=== PATIENT | male | born 1955 | race Caucasian/White ===

== ENCOUNTER 2016-10-03 10:19 | Emergency (ER) | payer MEDICAID ==
[~2016-10-03] VITALS: Ht 172.7 cm; Wt 63.5 kg
[2016-10-03 12:34] LABS: CALCIUM 8.7 mg/dL (8.5-10.1); CARBON DIOXIDE 27.8 mmol/L (21-32); CHLORIDE SERUM 104 mmol/L (98-107); CREATININE SERUM 0.9 mg/dL (0.7-1.3); GFR1 > 60 mL/min; GLUCOSE SERUM 95 mg/dL (74-106); POTASSIUM SERUM 4.1 mmol/L (3.5-5.1); SODIUM SERUM 137 mmol/L (136-145)
[2016-10-03 14:16] VITALS: BP 145/89
== END 2016-10-03 14:16 | disposition home or self-care (01) ==
LOC: ED 10:19
PROVIDERS: Emergency Medicine
DX: L03.115 Cellulitis of right lower limb (principal)
CPT/HCPCS: J0690; J2405; J3010; J3490

== ENCOUNTER 2016-10-06 09:06 | Inpatient (IN) | payer SELFPAY ==
[~2016-10-06] VITALS: Ht 172.7 cm; Wt 62.1 kg
--- NOTE | 2016-10-06 10:44 | NUR ---
TO TOOM T2A VIA WC, AWAITING EVAL.
--- NOTE | 2016-10-06 11:01 | NUR ---
MSE COMPLETED BY DR VENCES.
--- NOTE | 2016-10-06 11:08 | NUR ---
MORTGAGE BROKER AT BEDSIDE.
--- NOTE | 2016-10-06 11:24 | NUR ---
X-RAY AT BEDSIDE.
[2016-10-06 11:29] LABS: BASOPHIL % 0.1 % (0-2); PLATELET COUNT 208 x10^3mcL (130-400); RED CELL DISTRIBUTION WIDTH 13.8 % (11.5-14.5)
[2016-10-06 11:36] LABS: CALCIUM 8.6 mg/dL (8.5-10.1); CARBON DIOXIDE 29.8 mmol/L (21-32); CHLORIDE SERUM 102 mmol/L (98-107); CREATININE SERUM 0.9 mg/dL (0.7-1.3); GFR1 > 60 mL/min; GLUCOSE SERUM 71 mg/dL (74-106); POTASSIUM SERUM 3.7 mmol/L (3.5-5.1); SODIUM SERUM 140 mmol/L (136-145)
[2016-10-06 11:41] LABS: ALBUMIN 3.4 g/dL (3.4-5.0); ALT/SGPT 31 U/L (16-63); AST/SGOT 28 U/L (15-37)
--- NOTE | 2016-10-06 11:50 | NUR ---
PT MEDICATED PER ORDERS, PT EDUCATED ON MEDICATIONS AND TO INFORM ME OF ADVERSE REACTIONS, PT VERBALIZED UNDERSTANDING. CALL LIGHT IN REACH. SIDE RAILS UP FOR SAFETY.
[2016-10-06 11:59] LABS: ALKALINE PHOSPHATASE 128 U/L (46-116); BILIRUBIN TOTAL 0.3 mg/dL (0.20-1.00); TOTAL PROTEIN, SERUM 7.4 g/dL (6.4-8.2)
--- NOTE | 2016-10-06 12:36 | NUR ---
PT SITTING UP EATING A SANDWICH AND JELLO, OKAYED PER DR VENCES.
--- NOTE | 2016-10-06 13:39 | NUR ---
DR LAM AT BEDSIDE TO EVAL PT.
[2016-10-06 13:46] LABS: microscopic required? NO
[2016-10-06 13:53] LABS: MAGNESIUM 2.2 mg/dL (1.8-2.4); PHOSPHOROUS 4.9 mg/dL (2.5-4.9)
[2016-10-06 13:56] LABS: urine erythrocyte NEGATIVE (NEGATIVE)
[2016-10-06 14:02] LABS: T3 TOTAL 1.26 ng/mL
[2016-10-06 14:05] LABS: AMPHETAMINE QUAL UR POSITIVE (NEG <=1000)
[2016-10-06 14:20] LABS: FREE T4 1.07 ng/dL (0.76-1.46); FREE THYROXINE INDEX 2.9 ug/dL (1.4-4.5); T4(THYROXINE) 9.6 ug/dL (4.7-13.3)
--- NOTE | 2016-10-06 14:22 | NUR ---
NS INFUSING VIA IV PUMP AT 110 ML/HOUR PER ORDERS, PT GIVEN WARM BLANKET FOR COMFORT. CALL LIGHT IN REACH.
--- NOTE | 2016-10-06 14:51 | NUR ---
PT MOVED TO ROOM ORTHO FOR PRIVACY.
--- NOTE | 2016-10-06 15:19 | NUR ---
PT C/O 5/10 PAIN TO HIS FOOT, PT MEDICATED WITH MORPHINE 2 MG SLOW IVP. PT REMAINS ON CM, CALL LIGHT IN REACH. PT SITTING UP WATCHING TV. NO REQUESTS AT THIS TIME.
--- NOTE | 2016-10-06 15:38 | NUR ---
WOUND PICTURE TAKEN AND PLACED IN CHART.
--- NOTE | 2016-10-06 15:38 | NUR ---
REPORT GIVEN TO GOLDY EXT [id number].
[2016-10-06 16:19] VITALS: BP 172/62
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
--- NOTE | 2016-10-06 18:28 | NUR ---
AAO TIMES 4. TELE # 8 SR. DRESSING TO RIGHT FOOT RE DRESSED AGAIN AFTER US OF RLE. IV SITE CDI. NO SOB. COOPERATIVE.
--- NOTE | 2016-10-06 20:00 | NUR ---
PT A/A/O X4. DENIES DIZZINESS AND HEADACHE. DIMINISHED BREATH SOUNDS NOTED SOLOMON BASES. BREATHING EVEN AND UNLABORED ON ROOM AIR. DENIES CHEST PAIN AND PRESSURE. BOWEL SOUNDS ACTIVE. NO C/O N/V AND ABD PAIN. SWELLING WITH REDNESS NOTED ON THE RIGHT FOOT WITH DRESSING C/D/I. PT C/O RIGHT FOOT DISCOMFORT AND DENIES NEED FOR PAIN MEDICATION THUS FAR. IV INTACT ON THE LEFT FOREARM INFUSING WITH NS AT 110 ML/HR. MADE PT COMFORTABLE. PLACED CALL LIGHT WITH IN REACH. WILL CONTINUE TO MONITOR.
[2016-10-06 21:00] VITALS: BP 125/61
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
--- NOTE | 2016-10-06 22:06 | NUR ---
PT C/O RIGHT FOOT PAIN. GAVE PT MORPHINE IVP. PT TOLERATED IT WELL. WILL CONTINUE TO MONITOR.
--- NOTE | 2016-10-07 03:36 | NUR ---
PT C/O PAIN. GAVE PT NORCO PO. PT TOLERATED IT WELL. PT REMOVED DRESSING FROM THE RIGHT FOOT. NO DRAINAGE NOTED. WILL CONTINUE TO MONITOR.
[2016-10-07 06:18] LABS: BASOPHIL % 0.7 % (0-2); PLATELET COUNT 204 x10^3mcL (130-400)
--- NOTE | 2016-10-07 06:18 | NUR ---
PT C/O PAIN. GAVE PT MORPHINE IVP. PT TOLERATED IT WELL. IV INTACT AND INFUSING ORDERED. WILL ENDORSE TO THE AM NURSE ACCORDINGLY.
[2016-10-07 06:22] LABS: CALCIUM 8.2 mg/dL (8.5-10.1); CARBON DIOXIDE 27.7 mmol/L (21-32); CHLORIDE SERUM 106 mmol/L (98-107); CREATININE SERUM 0.8 mg/dL (0.7-1.3); GFR1 > 60 mL/min; GLUCOSE SERUM 95 mg/dL (74-106); MAGNESIUM 2.6 mg/dL (1.8-2.4); PHOSPHOROUS 3.7 mg/dL (2.5-4.9); POTASSIUM SERUM 3.9 mmol/L (3.5-5.1); SODIUM SERUM 142 mmol/L (136-145)
[2016-10-07 06:52] VITALS: BP 136/69
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
--- NOTE | 2016-10-07 08:00 | NUR ---
DR HUNT AND MEDICAL TEAM INTO SEE PATIENT AND DISCUSS PLAN OF CARE TO INCLUDE D/C HOME TODAY.
[2016-10-07 09:16] VITALS: BP 134/67
[2016-10-07] MEDS ORDERED: LEVOFLOXACIN500 M1 PO (10:26)
[2016-10-07] MEDS ORDERED: CLEOCIN HCL300 MG PO (10:27)
--- NOTE | 2016-10-07 10:30 | NUR ---
PATIENT PULLED OUT IV, UPSET THAT NO WOUND CARE HAS BEEN DONE BY A DOCTOR. DR LAM AT BEDSIDE AND EXPLAINED TO PATIENT THAT WOUND CARE WOULD BE DONE AND THAT HE WAS CHANGING HIS IV ANTIBIOTICS TO ORAL AND HIS PAIN MED TO ORAL WELL PATIENT HAS PULLED HIS IV OUT. PLAN IS TO D/C PATIENT HOME TODAY. WOUND CARE DONE BY NURSE AT THIS TIME ORDERED. DRESSING APPLIED. RT FOOT ELEVATED UP ON PILLOW IN BED. PATIENT APPEARS MORE CALM AT THIS TIME.
--- NOTE | 2016-10-07 11:09 | NUR ---
PATIENT C/O RT FOOT PAIN 8/10 ON THE PAIN SCALE. MEDICATED WITH PERCOCET PO ORDERED. WILL CONTINUE TO MONITOR.
[2016-10-07] MEDS ORDERED: PERCOCET1 TAB PO (12:34)
[2016-10-07] MEDS ORDERED: LAC PO (12:39)
[2016-10-07] MEDS ORDERED: COLACE100 MG PO (12:39)
[2016-10-07 12:58] VITALS: BP 134/67
--- NOTE | 2016-10-07 14:06 | NUR ---
PATIENT READY FOR D/C HOME. WOUND CARE SUPPLIES PROVIDED FOR PATIENT. PRESCRIPTION AND DISCHARGE INSTRUCTIONS GIVEN. PERSONAL BELONGINGS LIST SIGNED. MEDICATION EDUCATION PROVIDED. PER PATIENT HE ALREADY HAS CRUTCHES AT HOME. CONDITION APPEARS STABLE AT THIS TIME.
== END 2016-10-07 14:12 | disposition home or self-care (01) | DRG 605 ==
LOC: ED 09:06 → DU 14:38 → MU 14:38 → DU 15:58 → MU 10-07 07:43
PROVIDERS: Emergency Medicine; ADMIT Family Medicine
DX: S90.93 Unspecified superficial injury of toes (principal); L03.031 Cellulitis of right toe; B95.62 Methicillin resistant Staphylococcus aureus infection as the cause of diseases classified elsewhere; F17.210 Nicotine dependence, cigarettes, uncomplicated; F12.10 Cannabis abuse, uncomplicated; H40.9 Unspecified glaucoma; F90.9 Attention-deficit hyperactivity disorder, unspecified type; Z68.22 Body mass index [BMI] 22.0-22.9, adult; Z56.0 Unemployment, unspecified; Y04.2XXS Assault by strike against or bumped into by another person, sequela
CPT/HCPCS: 80307; 83880; 84439; J0696; J2270; J2405; J7030; Q0092